=== PATIENT | female | born 2005 ===

== ENCOUNTER 2024-09-29 07:38 | Outpatient (RCR) | payer SELFPAY ==
[2024-09-16 14:00] VITALS: BP 114/65; PULSE 80; TEMP 36.1; O2SAT 98
[2024-09-16] MEDS: IRON SUCROSE COMPLEX 300 MG in 0.9 % SODIUM CHLORIDE 250 ML 176.667 MG IV (14:21)
--- NOTE | 2024-09-16 14:22 | PC.NURSE ---
1421: IV Venofer initiated at this time. Pt. given pillow and blanket. Relays comfort and denies needs.
--- NOTE | 2024-09-16 14:57 | PC.NURSE ---
Tolerating infusion without c/o. Denies needs.
[2024-09-22 13:41] VITALS: BP 115/75; PULSE 78; TEMP 37.1; O2SAT 97
[2024-09-22] MEDS: IRON SUCROSE COMPLEX 300 MG in 0.9 % SODIUM CHLORIDE 250 ML 176.667 MG IV (13:52)
== END 2024-10-02 23:59 | disposition home or self-care (01) ==
LOC: INF 07:38
PROVIDERS: Visit Provider Specialist
DX: D64.9 Anemia, unspecified (principal); D50.9 Iron deficiency anemia, unspecified
CPT/HCPCS: 96365; 96366; J1756